=== PATIENT | male | born 2000 | race Caucasian/White ===

== ENCOUNTER 2019-12-24 21:53 | Emergency (ER) | payer BC ==
[2019-12-24] MEDS ORDERED: Bacitracin Oint 1 GM U/D Packet TOP ONE (22:22)
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
[2019-12-24] MEDS ORDERED: Diphtheria,Pertussis(Acell),Tetanus Vaccine 0.5 ML SDV IM ONE (22:34)
== END 2019-12-24 23:14 | disposition home or self-care (01) ==
LOC: JP.ED 21:53
DX: S70.01XA Contusion of right hip, initial encounter (principal); S50.311A Abrasion of right elbow, initial encounter; Z23 Encounter for immunization; V86.69XA Passenger of other special all-terrain or other off-road motor vehicle injured in nontraffic accident, initial encounter
CPT/HCPCS: 81001; 90471; 90715; 99282; 99283